=== PATIENT | male | born 1990 | race Caucasian/White ===

== ENCOUNTER 2017-04-21 09:41 | Emergency (ER) | payer SELFPAY ==
[2017-04-21 09:58] VITALS: BP 147/79; PULSE 97; RESP 16; TEMP 98.6; O2SAT 96
[2017-04-21] MEDS ORDERED: HYDROCOD/APAP 5/325 PREPACK#6 BTL TAKEHOME ONE (10:03)
--- NOTE | 2017-04-21 10:03 | EDPHY ---
H & P Stated Complaint: R upper/lower molar pain x 5 days. Time Seen by Provider: 04/21/17 09:53 HPI/ROS: Chief Complaint: Tooth pain HPI: 27-year-old male with a past history of heavy x-ray recreational drug use now been clean for 4 months presenting with diffuse pain but primarily in the right upper jaw. This been going on for about 4 5 days. He has an appointment with the [facility] but not for another 2 weeks. He has been use in large amounts of ibuprofen without any relief. No fevers or chills. States that he has a history of poor dentition and has not been taking care of his teeth. No nausea or vomiting. No pain with swallowing. ROS: 10 point Review of Systems is negative except as noted in the HPI. PMH: Substance abuse, mental health Medications: None Allergies: No known drug allergies Social History: No smoking, no alcohol, has been clean from drug use for 4 months Family History: non-contributory Physical Exam: Gen: Awake, Alert, No Distress HEENT: Nose: no rhinorrhea Eyes: PERRLA, EOMI Mouth: Moist mucosa extensive advanced dental caries in bilateral upper lower molars and premolars. There is some erythema at the gingival border of his right upper molar. There is no purulence or discharge. There is tenderness in his 1st right upper molar. Neck: Supple, no JVD, no lymphadenopathy Skin: no rash Neuro: CN II-XII intact, Sensation grossly intact, Strength 5/5 in bilateral upper and lower extremities - Personal History Current Tetanus/Diphtheria Vaccine: Unsure Current Tetanus Diphtheria and Acellular Pertussis (TDAP): Unsure - Medical/Surgical History Hx Asthma: No Hx Chronic Respiratory Disease: No Hx Diabetes: No Hx Cardiac Disease: No Hx Renal Disease: No Hx Cirrhosis: No Hx Alcoholism: No Hx HIV/AIDS: No Hx Splenectomy or Spleen Trauma: No Other PMH: Dental issues "Bad teeth" - Social History Smoking Status: Current every day smoker Constitutional: Initial Vital Signs Temperature (C) 37 C 04/21/17 09:42 Heart Rate 97 04/21/17 09:42 Respiratory Rate 16 04/21/17 09:42 Blood Pressure 147/79 H 04/21/17 09:42 O2 Sat (%) 96 04/21/17 09:42 O2 Delivery Mode Room Air Allergies/Adverse Reactions: No Known Allergies Allergy (Verified 04/21/17 09:51) Home Medications: Medication Instructions Recorded Amoxicillin 500 mg PO TID 7 Days 04/21/17 Antihistamine 04/21/17 Ibuprofen 04/21/17 Departure - Departure Disposition: Home, Routine, Self-Care Clinical Impression: Tooth abscess, Dental caries Condition: Good Instructions: Dental Abscess (ED), Dental Caries (ED), Toothache (ED) Additional Instructions: Take your full course of antibiotics. Follow-up with dental aid, call today for the next available appointment. Referrals: NONE *PRIMARY CARE P,. [Primary Care Provider] - As per Instructions [facility] [Outside] - As per Instructions Prescriptions: Amoxicillin 500 mg PO TID 7 Days
== END 2017-04-21 10:17 | disposition home or self-care (01) ==
LOC: CED 09:41
DX: K04.7 Periapical abscess without sinus (principal); K02.9 Dental caries, unspecified; F17.200 Nicotine dependence, unspecified, uncomplicated

== ENCOUNTER 2017-05-08 19:33 | Emergency (ER) | payer SELFPAY ==
[2017-05-08 19:45] VITALS: RESP 16
[2017-05-08] MEDS ORDERED: KETOROLAC 30 MG/1 ML SDV IM ONE (19:59)
[2017-05-08] MEDS ORDERED: ACETAMINOPHEN 500 MG TAB PO ONE (19:59)
--- NOTE | 2017-05-08 20:04 | EDPHY ---
H & P Time Seen by Provider: 05/08/17 19:55 HPI/ROS: CHIEF COMPLAINT: Facial swelling HISTORY OF PRESENT ILLNESS: 27-year-old male who is been having toothache for nearly 3 weeks. Patient was seen in the emergency department on April 22 at that time received a prescription for amoxicillin. He reports pain is in the lower right molar x2 as well as discomfort in the upper right teeth. Patient has been using ibuprofen to control the discomfort. He finished the antibiotic approximately 4-5 days ago. Today the patient noticed swelling on the right side of his face. On arrival to the emergency department he is has a low-grade fever, although they were outside at a picnic. Patient reports discomfort with eating, as well as significant discomfort in his teeth. He has an appointment on May 25 that the [facility]. No fever, chills, chest pain, shortness of breath, palpitations, vomiting, diarrhea, urinary complaints, headache, lightheadedness. REVIEW OF SYSTEMS: Aside from elements discussed in the HPI, a comprehensive 10-point review of systems was reviewed and is negative. PAST MEDICAL HISTORY: Prior opiate addiction SOCIAL HISTORY: Smoker. GENERAL APPEARANCE: Somewhat uncomfortable appearing. Complaining of pain in his teeth. FOCUSED EXAM OF HEENT: Mild swelling over the right cheek. No erythema. No involvement of the eye. No sub mandibular adenopathy. Discomfort with opening the mouth but no trismus. Posterior pharynx is clear. Gumline has no abscess noted. Widespread dental decay. Percussion tenderness on the posterior lower molar (number 32) and lower tooth number 30. Widespread decay of teeth #2, 3 and 4. Smoking Status: Current every day smoker Constitutional: Initial Vital Signs Temperature (C) 37.6 C 05/08/17 19:43 Heart Rate 112 H 05/08/17 19:43 Respiratory Rate 16 05/08/17 19:43 Blood Pressure 141/87 H 05/08/17 19:43 O2 Sat (%) 97 05/08/17 19:43 O2 Delivery Mode Room Air Allergies/Adverse Reactions: No Known Allergies Allergy (Verified 04/21/17 09:51) Home Medications: Medication Instructions Recorded Ibuprofen 04/21/17 Clindamycin HCl [Clindamycin] 300 mg PO TID #21 cap 05/08/17 MDM/Departure - MDM Medications Given: Discontinued Medications Acetaminophen (Tylenol) 1,000 mg PO EDNOW ONE Stop: 05/08/17 20:00 Last Admin: 05/08/17 20:09 Dose: 1,000 mg Ketorolac Tromethamine (Toradol) 30 mg IM EDNOW ONE Stop: 05/08/17 20:00 Last Admin: 05/08/17 20:08 Dose: 30 mg ED Course/Re-evaluation: Patient was placed on clindamycin. He was given information regarding ibuprofen and Tylenol including appropriate doses. Received Toradol 30 mg IM as he reports the last dose of ibuprofen was this morning. He also received Tylenol in the emergency department. He was given referral to [facility]. He is advised to call them on Thursday for urgent appointment. Differential Diagnosis: Differential diagnoses for the patient's symptom complex was considered including but not limited to dental trauma, dental caries, dental abscess, facial abscess, deep space abscess, drug-seeking behavior. - Depart Disposition: Home, Routine, Self-Care Clinical Impression: Dental infection Condition: Good Instructions: Dental Abscess (ED), Dental Caries (ED), Toothache (ED) Additional Instructions: 1. Consider salt water gargles to help decrease the swelling. 2. Continue to use ibuprofen 600 mg every 6-8 hours for pain and inflammation. Do not exceed this dose. 3. Add Tylenol 650-1000 mg every 4 hours for additional pain relief. 4. The Tylenol and ibuprofen may be taken at the same time. Please note the time differences regarding how often you had take this. 5. Take antibiotic as directed. 6. Please call [facility] on Thursday morning. Advised them that you were seen in the emergency department and that the emergency physician has referred you to them for an urgent appointment. Let them know this is the second visit for dental infection. I believe feel you need an appointment prior to the . Prescriptions: Clindamycin HCl [Clindamycin] 300 mg PO TID #21 cap Referrals: NONE *PRIMARY CARE P,. [Primary Care Provider] - As per Instructions [facility] [Outside] - As per Instructions [facility] [Outside] - As per Instructions
[2017-05-08 20:20] VITALS: BP 136/78; PULSE 98; TEMP 98.2; O2SAT 98
== END 2017-05-08 20:23 | disposition home or self-care (01) ==
LOC: CED 19:33
DX: K04.7 Periapical abscess without sinus (principal); F17.200 Nicotine dependence, unspecified, uncomplicated
CPT/HCPCS: J1885